=== PATIENT | female | born 1965 | race Caucasian/White ===

== ENCOUNTER 2016-08-02 12:18 | Emergency (ER) | payer BC ==
[2016-08-02 13:05] VITALS: BP 127/68
--- NOTE | 2016-08-02 13:50 | UC ---
Respiratory Complaint HPI - HPI Summary HPI Summary: 2 days of dry cough , with bronchial discomfort, no fevers, chills - History of Current Complaint Chief Complaint: UCGeneralIllness Stated Complaint: COUGH,CHEST CONGESTION Time Seen by Provider: 08/02/16 13:41 Hx Obtained From: Patient Hx Last Menstrual Period: NOW ?: No Onset/Duration: Sudden Onset, Lasting Days - 2, Still Present Timing: Constant Severity Initially: Mild Severity Currently: None Pain Intensity: 4 Pain Scale Used: 0-10 Numeric Character: Cough: Nonproductive Aggravating Factors: Nothing Associated Signs And Symptoms: Positive: Pleuritic Chest Pain, URI - Allergies/Home Medications Allergies/Adverse Reactions: Allergies Allergy/AdvReac Type Severity Reaction Status Date / Time No Known Allergies Allergy Verified 08/02/16 12:54 Home Medications: Home Medications Amlodipine Besylate [Norvasc 5 mg tab] 1 tab PO DAILY 08/02/16 [History Confirmed 08/02/16] Ferrous Sulfate [Iron (Ferrous Sulfate)] 65 mg PO DAILY 08/02/16 [History Confirmed 08/02/16] Metoprolol Tartrate [Lopressor] 1 tab PO BID 08/02/16 [History Confirmed ] Multiple Vitamins W/ Minerals [Multivitamin Adult] 1 tab PO DAILY 08/02/16 [ History Confirmed 08/02/16] Sertraline HCl [Zoloft] 1 tab PO DAILY 08/02/16 [History Confirmed 08/02/16] Valsartan/HCTZ 160/12.5(NF) [Diovan HCT 160/12.5 (NF)] 1 tab PO DAILY 08/02/16 [ History Confirmed 08/02/16] celeCOXIB CAP* [Celebrex CAP*] 1 tab PO DAILY 08/02/16 [History Confirmed ] PMH/Surg Hx/FS Hx/Imm Hx Previously Healthy: No Endocrine History Of: Denies: Diabetes Cardiovascular History Of: Reports: Hypertension Denies: Pacemaker/ICD - Surgical History Surgical History: Yes Surgery Procedure, Year, and Place: Hernia Repair, 2009, [facility] – [place] - Family History Known Family History: Positive: None - Social History Occupation: Employed Full-time Lives: With Family Alcohol Use: None Substance Use Type: None Smoking Status (MU): Heavy Every Day Tobacco Smoker Type: Cigarettes Amount Used/How Often: 1/2 PK DAILY Cessation Counseling: Counseled 3+Min - 10 Min Review of Systems Constitutional: Negative Skin: Negative Eyes: Negative ENT: Negative Respiratory: Cough Cardiovascular: Negative Gastrointestinal: Negative Genitourinary: Negative Motor: Negative Neurovascular: Negative Musculoskeletal: Negative Neurological: Negative Psychological: Negative All Other Systems Reviewed And Are Negative: Yes Physical Exam Triage Information Reviewed: Yes Appearance: Well-Appearing, No Pain Distress, Well-Nourished Vital Signs: Initial Vital Signs Temp 99.1 F 08/02/16 12:59 Pulse 64 08/02/16 12:59 Resp 18 08/02/16 12:59 BP 127/68 08/02/16 12:59 Pulse Ox 94 08/02/16 12:59 Vital Signs Reviewed: Yes Eye Exam: Normal Eyes: Positive: Conjunctiva Clear ENT Exam: Normal ENT: Positive: Normal ENT inspection, Hearing grossly normal, Pharynx normal, Nasal congestion, Nasal drainage, TMs normal. Negative: Tonsillar swelling, Tonsillar exudate, Trismus, Muffled/hoarse voice Dental Exam: Normal Neck exam: Normal Neck: Positive: Supple, Nontender, No Lymphadenopathy Respiratory Exam: Normal Respiratory: Positive: Chest non-tender, Lungs clear, Normal breath sounds, No respiratory distress, No accessory muscle use Cardiovascular Exam: Normal Cardiovascular: Positive: RRR, No Murmur, Pulses Normal, Brisk Capillary Refill Musculoskeletal Exam: Normal Musculoskeletal: Positive: Strength Intact, ROM Intact, No Edema Neurological Exam: Normal Neurological: Positive: Alert, Muscle Tone Normal, Fatigued Psychological Exam: Normal Psychological: Positive: Normal Response To Family, Age Appropriate Behavior Skin Exam: Normal UC Diagnostic Evaluation - Laboratory O2 Sat by Pulse Oximetry: 94 Respiratory Course/Dx - Course Course Of Treatment: albuterol, tessalon, increase fluids, nicotine cesation information, follow with pcp prn - Differential Dx/Diagnosis Differential Diagnosis/HQI/PQRI: Asthma, Bronchitis, Exacerbation Of COPD Provider Diagnoses: Viral illness with bronchospastic cough Discharge - Discharge Plan Condition: Stable Disposition: HOME Prescriptions: Albuterol HFA INHALER* [Ventolin HFA Inhaler*] 2 puff INH Q4H PRN #1 mdi PRN Reason: cough/chest congestion Benzonatate CAP* [Tessalon 100 MG CAP*] 100 mg PO TID PRN #30 cap PRN Reason: cough Patient Education Materials: How to Stop Smoking (ED), Cigarette Smoking and Your Health (GEN), How to Use a Metered-Dose Inhaler (ED), Bronchospasm (ED) Forms: *Work Release Referrals: Maurice Ventura NP [Primary Care Provider] - 1 Week
== END 2016-08-02 13:59 | disposition home or self-care (01) ==
LOC: UCCORT 12:18
DX: B34.9 Viral infection, unspecified (principal); R05 Cough; I10 Essential (primary) hypertension; Z71.6 Tobacco abuse counseling
CPT/HCPCS: 99212; G0463